=== PATIENT | female | born 1960 | race Caucasian/White ===

== ENCOUNTER 2025-03-25 09:55 | Outpatient (AMB) | payer BC, SELFPAY ==
--- OUTSIDE RECORDS SUMMARY | 2025-03-22 13:00 | XMS_ITS | Encounter Summary ---
Author Organization [facility] Address [address] [place] [address] Care Team Providers Care Content Architect Name Role Phone Denita Perez MD Primary Care Provider [phone] Reason for Visit * Reason Comments Follow-up Encounter Details Date Type Department Care Team ([facility] st Contact Info) Description 03/22/2025 1:00 PM EST Office Visit Adult Medicine [address] [phone] Denita Perez MD [address] [place] [address] Primary hypertension (Primary Dx); Prediabetes; Urinary urgency; Acquired hypothyroidism; Need for prophylactic vaccination and inoculation against influenza; Skin infection Social History Tobacco Use Types Packs/Day Years Used Date Smoking Tobacco: Former Passive Smoke Exposure: Never Smokeless Tobacco: Never Alcohol Use Standard Drinks/Week Comments Yes 0 (1 standard drink = 0.6 oz pur e alcohol) Comments No Sex and Gender Information Value Date Recorded Sex Assigned at Not on file Legal Sex Female 1:08 AM EST Gender Identity Not on file Sexual Orientation Not on file documented as of this encounter Last Filed Vital Signs Vital Sign Reading Time Taken Comments Blood Pressure 128/78 03/22/2025 1:03 PM EST Pulse 82 03/22/2025 1:03 PM EST Temperature 36.4 C (97.5 F) 03/22/2025 1:03 PM EST Respiratory Rate 14 03/22/2025 1:03 PM EST Oxygen Saturation 98% 03/22/2025 1:03 PM EST Inhaled Oxygen Concentration - - Weight 80.3 kg (177 lb) 03/22/2025 1:03 PM EST Height 174 cm (5' 8.5 ) 03/22/2025 1:03 PM EST Body Mass Index 26.52 03/22/2025 1:03 PM EST documented in this encounter Ordered Prescriptions Prescription Sig Dispense Quantity Refills Last Filled Start Date End Date lisinopriL (PRINIVIL,ZESTRIL) 2.5 mg tablet Take 1 tablet (2.5 mg total) by mouth 1 (one) time each day. 90 each 1 03/22/2025 6 doxycycline (VIBRAMYCIN) 100 mg capsule Take 1 capsule (100 mg total) by mouth 2 (two) times a day for 7 days. Take with at least 8 ounces (large glass) of water, do not lie down for 30 minutes after. Administer 2 hours before or after multivitamins, antacids, or other products containing polyvalent cations (i.e., calcium, iron, magnesium, selenium, zinc). 14 each 03/22/2025 5 rOPINIRole (REQUIP) 1 mg tabletIndications: restless leg syndrome Take 1 tablet (1 mg total) by mouth at bedtime. 90 tablet 1 03/22/2025 metoprolol succinate (TOPROL-XL) 50 mg 24 hr tablet Take 1 tablet (50 mg total) by mouth 1 (one) time each day. 90 tablet 1 03/22/2025 gabapentin (NEURONTIN) 300 mg capsule Take 1 capsule (300 mg total) by mouth 2 (two) times a day. 180 capsule 1 03/22/2025 atorvastatin (LIPITOR) 40 mg tablet Take 1 tablet (40 mg total) by mouth at bedtime. 90 tablet 1 03/22/2025 documented in this encounter Progress Notes * Denita Perez MD - 03/22/2025 1:00 PM EST Images from the original note were not included. CHIEF COMPLAINT: Follow-up IDENTIFIER: Shannon Campbell is a 65 y.o. old female. HPI: Patient is a 65-year-old female with history of hypertension, hyperlipidemia, hypothyroidism, restless leg syndrome, anxiety, lumbar spinal stenosis who is here for medication review. Ciqepnxzhusd-igdp-kvuntrnqxu on lisinopril 5 mg, metoprolol 50 mg daily.Patient reports intermittent episodes of lightheadedness which last a few seconds and then resolved, has lost weight over the years with lifestyle modifications. Hypothyroidism-compliant with levothyroxine 100 mcg daily. Hyperlipidemia-patient reports compliance with atorvastatin 40 mg daily. Restless leg syndrome-on ropinirole 1 mg prior to bedtime. Anxiety-symptoms stable on sertraline 100 mg daily. Lumbar spinal stenosis-taking gabapentin 300 mg twice a day History of MRSA-patient had a previous MRSA related boil on the back of her right leg, states that currently she has another 1, did see infectious disease and had blood cultures drawn which were negative. She has undergone decolonization with mupirocin and chlorhexidine wash. Previous history of MRSA UTI, reporting some urinary urgency symptoms as well ROS: Review of systems: Pertinent items are noted in HPI PAST MEDICAL HISTORY: Patient Active Problem List Diagnosis Date Noted Dysplastic nevi 02/20/2024 Prediabetes 10/17/2021 Endometrial polyp 09/13/2021 Postmenopausal bleeding 09/03/2021 Chronic left-sided low back pain 08/20/2021 Cervical spondylosis with radiculopathy 06/26/2021 Hematuria 06/21/2015 Anxiety 03/17/2014 Hypercholesterolemia 11/25/2013 Proteinuria 12/18/2012 Hypothyroidism 11/13/2010 Essential hypertension, benign 07/16/2006 Allergic rhinitis 07/16/2006 Obesity (BMI 30.0-34.9) 07/10/2006 Female infertility 12/13/2005 SOCIAL HISTORY: Social History Tobacco Use Smoking status: Former Passive exposure: Never Smokeless tobacco: Never Substance Use Topics Alcohol use: Yes FAMILY HISTORY: Family Status Relation Name Status Mother Alive HTN; DM Father HODGKINS MGM SD 70s MGF SD 70s, CVA PGM at age 80s Old age PGF at age 60s SD Other m 1st cousin 40s Alive Nephew Hodgkins Other Nephew Alive Neg Hx (Not Specified) Sister Alive 3 sisters healthy Daughter Alive 1 daughter age 19, healthy, Kolleen Son Alive 1 son, fraternal twin, 19 healthy, Sanya Uncle (Not Specified) Mat uncle [place] No partnership data on file Family History[1] ACTIVE MEDICATIONS: Medications Taking[2] ALLERGIES: Chlorzoxazone PHYSICAL EXAM: Blood pressure 128/78, pulse 82, temperature 36.4 ??C (97.5 ??F), temperature source Temporal, resp. rate 14, height 1.74 m (68.5 ), weight 80.3 kg (177 lb), SpO2 98%. Body mass index is 26.52 kg/m??. Plan is deferred until next visit APPEARANCE: Alert and in no acute distress EYES: PERRLA, conjunctiva and sclera normal HEART: RRR with normal S1 and S2, no murmurs, no gallops, no JVD appreciated LUNG: clear to auscultation bilaterally EXTREMITIES: Extremities warm and well perfused without clubbing, cyanosis, or edema NEURO: Awake, alert and oriented x 3 and Normal gait SKIN: Erythematous nodule on right posterior thigh LABS: IMPRESSION: 1. Primary hypertension 2. Prediabetes 3. Urinary urgency 4. Acquired hypothyroidism 5. Need for prophylactic vaccination and inoculation against influenza 6. Skin infection ASSESSMENT/PLAN: Shannon was seen today for follow-up. Diagnoses and all orders for this visit: Primary hypertension (Primary) - Comprehensive metabolic panel; Future Prediabetes - CBC and differential; Future - Hemoglobin A1c; Future Urinary urgency - Urinalysis with reflex microscopic and culture; Future Acquired hypothyroidism - Thyroid stimulating hormone with reflex to free t4 and free t3; Future Need for prophylactic vaccination and inoculation against influenza - Influenza trivalent, MDCK, 0.5mL, preservative free (Flucelvax) 6mo and older Skin infection Other orders - atorvastatin (LIPITOR) 40 mg tablet; Take 1 tablet (40 mg total) by mouth at bedtime. - gabapentin (NEURONTIN) 300 mg capsule; Take 1 capsule (300 mg total) by mouth 2 (two) times a day. - metoprolol succinate (TOPROL-XL) 50 mg 24 hr tablet; Take 1 tablet (50 mg total) by mouth 1 (one)time each day. - rOPINIRole (REQUIP) 1 mg tablet; Take 1 tablet (1 mg total) by mouth at bedtime. - doxycycline (VIBRAMYCIN) 100 mg capsule; Take 1 capsule (100 mg total) by mouth 2 (two) times a day for 7 days. Take with at least 8 ounces (large glass) of water, do not lie down for 30 minutes after. Administer 2 hours before or after multivitamins, antacids, or other products containing polyvalent cations (i.e., calcium, iron, magnesium, selenium, zinc). - lisinopriL (PRINIVIL,ZESTRIL) 2.5 mg tablet; Take 1 tablet (2.5 mg total) by mouth 1 (one) time each day. Plan Patient with history of hypertension, currently on lisinopril 5 mg, does report intermittent episodes of lightheadedness which last about a few seconds, has lost weight over the years with healthier lifestyle, decreased dose of lisinopril 2.5 mg daily, and continue with metoprolol 50 mg daily, patient vitamin D and blood pressure log at home and follow-up in office for recheck.History of MRSA-patient had a previous MRSA related boil on the back of her right leg, states that currently she has another 1, did see infectious disease and had blood cultures drawn which were negative. She has undergone decolonization with mupirocin and chlorhexidine wash. Previous history of MRSA UTI, reporting some urinary urgency symptoms as well, start doxycycline for treatment of MRSA related skin and soft tissue infection, obtain urinalysis with reflex to culture. Patient advised to monitor symptoms and contact office if there is any worsening of symptoms. Continue with atorvastatin, lipid panel well-controlled. Continue with gabapentin. Continue levothyroxine, repeat TSH. Continue with ropinirole. Continue with sertraline. Follow up in about 8 weeks (around 05/17/2025) for BP follow up. Orders Placed This Encounter Procedures Influenza trivalent, MDCK, 0.5mL, preservative free (Flucelvax) 6mo and older CBC and differential Comprehensive metabolic panel Thyroid stimulating hormone with reflex to free t4 and free t3 Hemoglobin A1c Urinalysis with reflex microscopic and culture Recent Results (from the past 4 weeks) Lipid panel with reflex to direct LDL Collection Time: 03/18/25 8:34 AM Result Value Ref Range Cholesterol 162 0 - 200 mg/dL Triglycerides 93 0 - 150 mg/dL HDL 45 >=40 mg/dL LDL Calculated 98 0 - 100 mg/dL VLDL Cholesterol Craig 18.6 mg/dL Non HDL Chol. (LDL+VLDL) 117 <145 mg/dL Chol/HDL Ratio 3.6 0.0 - 4.4 Denita Perez MD on 03/22/2025 at 1:32 PM EST [1] Family History Problem Relation Name Age of Onset Colon polyps Mother Hypertension Mother 40's start Other cancer Father Hodgkins Heart failure Maternal Grandmother Hypertension Maternal Grandmother Heart attack Maternal Grandmother 74 Stroke Maternal Grandmother 70's Heart failure Maternal Grandfather Hypertension Maternal Grandfather Heart attack Maternal Grandfather 75 Diabetes Paternal Grandmother Heart attack Paternal Grandfather 60's Breast cancer Other m 1st cousin 40s 48.00 1st cousin Other (Other: hodjkins lymphoma) Other Nephew Colon cancer Neg Hx Ovarian cancer Neg Hx Uterine cancer Neg Hx [2] Outpatient Medications Marked as Taking for the 03/22/25 encounter (Office Visit) with Denita Perez MD Medication Sig Dispense Refill atorvastatin (LIPITOR) 40 mg tablet Take 1 tablet (40 mg total) by mouth at bedtime. 90 tablet 1 gabapentin (NEURONTIN) 300 mg capsule Take 1 capsule (300 mg total) by mouth 2 (two) times a day. 180 capsule 1 metoprolol succinate (TOPROL-XL) 50 mg 24 hr tablet Take 1 tablet (50 mg total) by mouth 1 (one) time each day. 90 tablet 1 rOPINIRole (REQUIP) 1 mg tablet Take 1 tablet (1 mg total) by mouth at bedtime. 90 tablet 1 [DISCONTINUED] metoprolol succinate (TOPROL-XL) 50 mg 24 hr tablet TAKE 1 TABLET BY MOUTH EVERY DAY90 tablet 1 documented in this encounter Plan of Treatment Upcoming Encounters Date Type Department Care Team (Late st Contact Info) Description 05/19/2025 11:00 AM EST Office Visit Adult Medicine [address] [phone] César Lamb PA [address] [place] [id number] Scheduled Orders Name Type Priority Associated Diagnoses Orde r Schedule CBC and differential Lab Routine Prediabetes Expected: 03/22/2025, Expires: 09/19/2025 Comprehensive metabolic panel Lab Routine Primary hypertension Expected: 03/22/2025, Expires: 09/19/2025 Thyroid stimulating hormone with reflex to free t4 and free t3 Lab Routine Acquired hypothyroidism Expected: 03/22/2025, Expires: 09/19/2025 Hemoglobin A1c Lab Routine Prediabetes Expected: 03/22/2025, Expires: 09/19/2025 documented as of this encounter Visit Diagnoses Diagnosis Primary hypertension- Primary Unspecified essential hypertension Prediabetes Other abnormal glucose Urinary urgency Urgency of urination Acquired hypothyroidism Unspecified hypothyroidism Need for prophylactic vaccination and inoculation against influenza Skin infection Unspecified local infection of skin and subcutaneous tissue documented in this encounter Discontinued Medications Medication Sig Discontinue Reason Start Date End Da te gabapentin (NEURONTIN) 300 mg capsule Take 1 capsule (300 mg total) by mouth 2 (two) times a day. Reorder 05/17/2024 03/22/2025 rOPINIRole (REQUIP) 1 mg tabletIndications:re stless leg syndrome Take 1 tablet (1 mg total) by mouth at bedtime. Reorder 09/14/2024 03/22/2025 atorvastatin (LIPITOR) 40 mg tablet Take 1 tablet (40 mg total) by mouth at bedtime. Reorder 01/07/2025 03/22/2025 metoprolol succinate (TOPROL-XL) 50 mg 24 hr tablet TAKE 1 TABLET BY MOUTH EVERY DAY Reorder 01/13/2025 03/22/2025 fluconazole (DIFLUCAN) 150 mg tablet Take 1 tablet (150 mg total) by mouth See administration instructions. Take one tab now. Repeat in 7 days if symptoms persist. Therapy completed 12/06/2024 03/22/2025 lisinopriL (PRINIVIL,ZESTRIL) 5 mg tablet TAKE 1 TABLET BY MOUTH 1 TIME EACH DAY. 11/09/2024 03/22/2025 documented as of this encounter Orders Immunization/Injection Count Last Ordered Date First Ordered Date INFLUENZA TRIVALENT, MDCK, 0 .5ML, PRESERVATIVE FREE (FLUCELVAX) 6MO AND OLDER 1 03/22/2025 documented in this encounter Additional Health Concerns Infection Onset Date Last Indicated Resolved Time MRSA 12/01/2024 12/01/2024 documented as of this encounter Care Teams Content Architect Relationship Specialty Start Date End Date Denita Perez MD [address] [place] [phone] PCP - General Internal Medicine 07/08/22 documented as of this encounter
--- OUTSIDE RECORDS SUMMARY | 2025-03-22 13:40 | XMS_ITS | Encounter Summary ---
Author Organization [facility] Address [address] [place] [address] Care Team Providers Care Auto Transmission Mechanic Name Role Phone Denita Perez MD Primary Care Provider [phone] Encounter Details Date Type Department Care Team (Late Contact Info) Description 03/22/2025 1:40 PM EST Lab Draw [address] Urinary urgency Social History Tobacco Use Types Packs/Day Years [...] on file documented as of this encounter Plan of Treatment Upcoming Encounters Date Type Department Care Team (Late Contact Info) Description 05/19/2025 11:00 AM EST Office Visit Adult Medicine [address] [phone] César Lamb PA [address] [place] [phone] documented as of this encounter Procedures Procedure Name Priority Date/Time Associated Diagnosis Comments URINALYSIS WITH REFLEX MICROSCOPIC AND CULTURE Routine 03/22/2025 1:40 PM EST Urinary urgency LAMBERT URINE CULTURE TUBE Routine 03/22/2025 1:40 PM EST Urinary urgency URINALYSIS WITH REFLEX MICROSCOPIC AND CULTURE Routine 03/22/2025 1:40 PM EST Urinary urgency CULTURE URINE Routine 03/22/2025 1:40 PM EST Urinary urgency documented in this encounter Results * Culture urine (03/22/2025 1:40 PM EST) Pathologist [facility] Culture, Urine 10,000-49,000 CFU/mL Mixed urogenital jigar, no uropathogens present. Suggest repeat specimen if clinically indicated. 03/24/2025 11:22 AM EST [facility] Urine Urine specimen obtained by clean catch procedure / Unknown Non-blood Collection / Unknown 03/22/2025 1:40 PM EST 03/22/2025 8:31 PM EST us Denita Perez MD LAB MICROBIOLOGY - GENERAL ORDER DANIEL Final Result Performing Organization Address City/[facility]/ZIP Co de Phone Number [facility] [address] [place] [address], [place] [phone] * Lambert urine culture tube (03/22/2025 1:40 PM EST) [facility] Extra Tube Hold for add-ons. 03/22/2025 7:01 PM EST [facility] Comment:Auto resulted. Urine Urine specimen obtained by clean catch procedure / Unknown Non-blood Collection / Unknown 03/22/2025 1:40 PM EST 03/22/2025 1:40 PM EST us Denita Perez MD LAB URINE ORDERABLES Final Resul t Performing Organization Address City/[facility]/ZIP Co de Phone Number [facility] [address] [place] [address], [place] [phone] * (ABNORMAL) Urinalysis with reflex microscopic and culture (03/22/2025 1:40 PM EST) Specific [place] Urine 1.020 1.003 - 1.030 LAB URINALYSIS - AUTOMATED METHOD 03/22/2025 8:31 PM [facility] pH, Urine 6.0 5.0 - 8.0 pH LAB URINALYSIS - AUTOMATED METHOD 03/22/2025 8:31 PM [facility] Leukocytes, Urine Trace(A) Negative LAB URINALYSIS - AUTOMATED METHOD 03/22/2025 8:31 PM [facility] Nitrite, Urine Negative Negative LAB URINALYSIS - AUTOMATED METHOD 03/22/2025 8:31 PM [facility] Protein, Urine Negative <=Trace mg/dL LAB URINALYSIS - AUTOMATED METHOD 03/22/2025 8:31 PM [facility] Glucose, Urine Negative Negative mg/dL LAB URINALYSIS - AUTOMATED METHOD 03/22/2025 8:31 PM [facility] Ketones, Urine Negative Negative mg/dL LAB URINALYSIS - AUTOMATED METHOD 03/22/2025 8:31 PM [facility] Urobilinogen, Urine 1.0 0.2 - 1.0 mg/dL LAB URINALYSIS - AUTOMATED METHOD 03/22/2025 8:31 PM [facility] Bilirubin, Urine Negative Negative LAB URINALYSIS - AUTOMATED METHOD 03/22/2025 8:31 PM [facility] Blood, Urine Trace(A) Negative LAB URINALYSIS - AUTOMATED METHOD 03/22/2025 8:31 PM [facility] RBC, Urine 1 0 - 4 /HPF 03/22/2025 8:31 PM [facility] WBC, Urine 2 0 - 4 /HPF 03/22/2025 8:31 PM [facility] Squamous Epithelial, Urine 10 0 - 60 /LPF 03/22/2025 8:31 PM [facility] Bacteria, Urine Negative Negative /HPF 03/22/2025 8:31 PM EST [facility] Hyaline Casts, Urine 0 0 - 3 /LPF 03/22/2025 8:31 PM EST [facility] Urine Urine specimen obtained by clean catch procedure / Unknown Non-blood Collection / Unknown 03/22/2025 1:40 PM EST 03/22/2025 1:40 PM EST us Denita Perez MD LAB URINE ORDERABLES Final Resul t [facility] [address] [place] [address], documented in this encounter Visit Diagnoses Diagnosis Urinary urgency Urgency of urination documented in this encounter Additional Health Concerns Infection Onset Date Last Indicated Resolved Time MRSA 12/01/2024 12/01/2024 documented as of this encounter Care Teams Auto Transmission Mechanic Relationship Specialty Start Date End Date Denita Perez MD [address] [place] [phone] PCP - General Internal Medicine 07/08/22 documented as of this encounter
--- NOTE | 2025-03-25 10:01 | A.PHYSOV_ITS ---
Vital Signs 03/25/25 10:02 Height 5 ft 9 in Weight 175 lb BMI 25.8 Intake Visit Reasons: Increased back pain Intake Note: Patient is a 65 year old female here with increased back pain. Refrigeration Brazer/Solderer Required: No Allergies chlorzoxazone Allergy (Unknown, Verified 03/25/25 10:01) Unknown HPI Comments Details: History of Present Illness The patient is a 65-year-old individual presenting with recurrent lower back pain radiating to the left leg. The pain episodes occur approximately every two months and last for at least two weeks. The pain is described as shooting and is associated with numbness in the left leg, which feels as though it is asleep. The patient reports that the pain was particularly severe in January, with the back feeling as though it was on fire when standing. The patient has been managing the pain with ibuprofen, Tylenol, and Gabapentin, and has previously been prescribed Prednisone. An MRI from 2022 revealed pinched nerves at the left L4 and bilateral L5 nerve roots, which innervate the left leg. The patient is considering an epidural injection to manage the pain, which is expected to provide relief for three to six months. Pain Description - Onset: Pain occurs approximately every two months, lasting at least two weeks. - Quality: Described as shooting pain in the lower back. - Location: Primarily in the lower back, radiating to the left leg. - Radiation: Pain radiates to the left leg, causing numbness. - Exacerbating factors: Standing up increases the pain, described as the back being on fire. - Relieving factors: Use of ibuprofen, Tylenol, Gabapentin, and previously Prednisone. [facility] Surgical History History of neck surgery Social History Alcohol intake: current Alcohol intake frequency: does not drink Patient Tobacco Use Status: Former Tobacco user Use of substances other than those prescribed or required for medical reasons: No Review of Systems Narrative Review of Systems - Musculoskeletal: Reports recurrent lower back pain radiating to the left leg. - Neurological: Reports numbness in the left leg. Physical Exam Exam Exam: Lumbar Spine: Examination of her lumbar spine, there is no visible swelling or deformity. She is tender to lower lumbar facets. She has full range of motion of the lumbar spine. She does have an increase in pain with facet loading. Special Tests: Lhermittes sign was negative Heel Toe walk is normal Left straight leg raise: Negative Right straight leg raise: Negative Special tests Paulina test is negative Ganslen's test is negative SI Joint compression test negative Vasquez test negative Piriformis stretch is negative Lower Extremities: Full range of motion bilateral lower extremities. No calf pain or edema. Neuro: Sensation: Intact to lower extremities bilaterally Strength L2 (Psoas): 5/5 on the left and 5/5 on the right. L3 (Quads): 5/5 on the left and 5/5 on the right. L4 (Ant tibialis): 5/5 on the left and 5/5 on the right. L5 (EHL) 5/5 on the left and 5/5 on the right. S1 (Gastroc): 5/5 on the left and 5/5 on the right. DTR L4: (Patellar) Left 2 Right 2 S1: (Achilles) Left 2 Right 2 Babinski Downgoing No pathologic clonus. No involuntary movement. Vital Signs: BMI result Body Mass Index 25.8 Assessment & Plan Assessment & Plan (1) Lumbar radiculopathy: Code(s): M54.16 - Radiculopathy, lumbar region Category: Medical (2) Lumbar spondylosis: Code(s): M47.816 - Spondylosis without myelopathy or radiculopathy, lumbar region Category: Medical Plan Ms. Campbell is a 65-year-old female seen in evaluation today for lumbar radiculitis. Patient has failed conservative treatment by completing physical therapy. She has also been using anti-inflammatory medications without relief. She finds that her symptoms limit her ability to perform her activities of daily living. MRI of the lumbar spine does confirm compression of the left L5, left L4 nerve roots which is consistent with a dermatomal presentation. At this point I recommend L5-S1 LUCHO and she is eager to proceed. We will obtain prior authorization for her injection and contact her once we have done so. In the meantime she will continue her home exercise plan and medications as prescribed. Thank you for allowing me to participate in the care of your patient. Coding Level of Care Code Tele Est Pt Level 3 (64923) Diagnoses Lumbar radiculopathy M54.16 Lumbar spondylosis M47.816
[2025-03-25 10:02] VITALS: BMI 25.8
--- OUTSIDE RECORDS SUMMARY | 2025-03-25 10:37 | XMS_ITS | Clinical Summary ---
Author Organization [facility] [address] [place] [address] [place] [phone] Phone Care Team Providers Care [employer] Processor Name Role Phone Denita Perez MD Primary Care Provider [phone] Allergies Active Allergy Reactions Criticality Noted Date Comments Chlorzoxazone 07/17/2006 Other Reaction(s): Rash/Dermatitis Medications sertraline (ZOLOFT) 100 mg tablet TAKE 1 TABLET BY MOUTH EVERYDAY AT BEDTIME 90 tablet 1 025 Active levothyroxine (SYNTHROID, LEVOTHROID) 100 mcg tablet TAKE 1 TABLET (100 MCG TOTAL) BY MOUTH 1 (ONE) TIME EACH DAY. BEFORE BREAKFAST 90 tablet 1 025 Active atorvastatin (LIPITOR) 40 mg tablet Take 1 tablet (40 mg total) by mouth at bedtime. 90 tablet 1 025 Active gabapentin (NEURONTIN) 300 mg capsule Take 1 capsule (300 mg total) by mouth 2 (two) times a day. 180 capsule 1 025 Active metoprolol succinate (TOPROL-XL) 50 mg 24 hr tablet Take 1 tablet (50 mg total) by mouth 1 (one) time each day. 90 tablet 1 025 Active rOPINIRole (REQUIP) 1 mg tabletIndicat ions:restless leg syndrome Take 1 tablet (1 mg total) by mouth at bedtime. 90 tablet 1 025 Active doxycycline (VIBRAMYCIN) 100 mg capsule Take 1 capsule (100 mg total) by mouth 2 (two) times a day for 7 days. Take with at least 8 ounces (large glass) of water, do not lie down for 30 minutes after. Administer 2 hours before or after multivitamins, antacids, or other products containing polyvalent cations (i.e., calcium, iron, magnesium, selenium, zinc). 14 each 025 2024 Active lisinopriL (PRINIVIL,ZES TRIL) 2.5 mg tablet Take 1 tablet (2.5 mg total) by mouth 1 (one) time each day. 90 each 1 2025 Active gabapentin (NEURONTIN) 300 mg capsule Take 1 capsule (300 mg total) by mouth 2 (two) times a day. 360 capsule 1 2024 Discontinued(R eorder) rOPINIRole (REQUIP) 1 mg tabletIndicat ions:restless leg syndrome Take 1 tablet (1 mg total) by mouth at bedtime. 90 tablet 1 2024 Discontinued(R eorder) lisinopriL (PRINIVIL,ZES TRIL) 5 mg tablet TAKE 1 TABLET BY MOUTH 1 TIME EACH DAY. 90 tablet 1 2024 Discontinued fluconazole (DIFLUCAN) 150 mg tablet Take 1 tablet (150 mg total) by mouth See administration instructions. Take one tab now. Repeat in 7 days if symptoms persist. 2 tablet 2024 Discontinued(T herapy completed) atorvastatin (LIPITOR) 40 mg tablet Take 1 tablet (40 mg total) by mouth at bedtime. 90 tablet 2024 Discontinued(R eorder) metoprolol succinate (TOPROL-XL) 50 mg 24 hr tablet TAKE 1 TABLET BY MOUTH EVERY DAY 90 tablet 1 2024 Discontinued(R eorder) Active Problems Problem Noted Date Diagnosed Date Dysplastic nevi 02/20/2024 Overview (02/20/2024): 1997 Prediabetes 10/17/2021 Endometrial polyp 09/13/2021 Postmenopausal bleeding 09/03/2021 Overview (02/20/2024): Last Assessment & Plan: I counseled Ishmael that PMB is relatively common and most often represents a benign process, but that it can be indicative of cancer, and thus is evaluated with an US. If the lining is thin, no further work up is necessary unless bleeding recurs. If the lining is thickened, can consider office biopsy vs hysteroscopy. She voiced understanding and will schedule her US. We will plan next steps once US results are available. Chronic left-sided low back pain 08/20/2021 Overview (02/20/2024): Last Assessment & Plan: We also discussed her ongoing low back pain particular on the left. We referred her to Dr. Hsieh in the past and she saw several months of improvement after a left L5-S1 LUCHO. She is now back to the same daily achiness with activity. She has no focal weakness and gait is steady. I will refer her back to Dr. Hsieh to consider repeat injection. Cervical spondylosis with radiculopathy 06/26/19 Overview (02/20/2024): Last Assessment & Plan: Ms. Herzog is status post C5-6, C6-7 ACDF with plating on 06/16/2018. She did very well after surgery but has had a recent flareup of trapezius pain particular on the right and feeling limited when turning to the left especially while driving. We referred her to physical therapy which she does not feel helped and even on some days, she felt worse. This is not debilitating and she denies issues with dexterity or every day activity in terms of using her hands. On exam, her incision is well-healed, cervical rotation is nearly 75 degrees to the right and between 60 and 75 degrees to the left. Strength is 5 out of 5 to confrontational testing, sensation light touch intact, gait is steady. Review of the AP/lateral flexion/extension x-rays from today show a solid arthrodesis across both grafts with an intact plate and screws from C5-C7. There is no instability at the levels above. Ms. Herzog was concerned that there may be additional wear and tear at her adjacent levels but I think it looks great. We discussed continuing with gentle stretches at home and keeping up with her daily activities. We would not pursue any further surgery as everything looks great. Hematuria 06/21/2015 Anxiety 03/17/2014 Hypercholesterolemia 11/25/2013 Proteinuria 12/18/2012 Hypothyroidism 11/13/2010 Essential hypertension, benign 07/16/2006 Overview (02/20/2024): Last Assessment & Plan: Referred to PCP for improved control. 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 IMO update Encounters Date Type Department Care Team Description 03/24/2025 Results Follow-Up Adult Medicine [address] [phone] Denita Perez MD 03/22/2025 1:40 PM EST Lab Draw Station [address] Urinary urgency 03/22/2025 1:00 PM EST Office Visit Adult Medicine [address] [phone] Denita Perez MD Primary hypertension (Primary Dx); Prediabetes; Urinary urgency; Acquired hypothyroidism; Need for prophylactic vaccination and inoculation against influenza; Skin infection 03/21/2025 Results Follow-Up Adult [address] [phone] Denita Perez MD 03/18/2025 8:35 AM EST Lab Draw Station - [address] Hypercholesterolemia from Last 3 Months Immunizations Immunization Administration Dates Next Due Influenza Quadravalent, MDCK , 0.5ml, preservative free (Flucelvax) 6mo and older 02/18/2024,03/15/2020,01/12/2018 Influenza Quadravalent, MDCK , 0.5ml, with preservative (Flucelvax) 6mo and older 01/31/2023 Influenza Quadrivalent, 0.5m l, preservative free (Fluarix; FluLaval; Fluzone) ages 6mo and older (Afluria) 3yo and older 03/09/2016 Influenza Split 02/08/2013,01/30/2012,01/24/2009 Influenza trivalent, 0.5mL, preservative free (Fluarix; FluLaval; Fluzone) ages 6mo and older (Afluria) 3 years and older 03/09/2016 Influenza trivalent, MDCK, 0 .5mL, preservative free (Flucelvax) 6mo and older 03/22/2025 Influenza trivalent, MDCK, 0 .5mL, with preservative (Flucelvax) 6mo and older 02/18/2024 Influenza trivalent, recombi nant, 0.5mL, preservative free (Flublok) 9yo and older 02/17/2014 Influenza trivalent, with preservative (Fluzone; Afluria) 6mo and older 04/03/2022,02/26/2021,02/15/2021,2018,02/13/2017,02/08/2013,01/30/2012 Influenza, Unspecified 04/03/2022,02/17/2014 PPD Test 01/21/2001,01/19/2001 Td Tetanus diptheria (Tdvax) 7yo and older 05/10/2022,09/01/2004 Tdap Tetanus diptheria acell ular pertussis (Boostrix; Adacel) 7yo and older 02/26/2012 Surgical History Surgery Date Site/Laterality Comments OTHER SURGICAL HISTORY PROCEDURE: LAPAROSCOPY PROCEDURE NEC; COMMENT: IVF OTHER SURGICAL HISTORY PROCEDURE: LAPAROSCOPY PROCEDURE NEC; COMMENT: Endometriosis COLONOSCOPY 2012 PROCEDURE: LA COLONOSCOPY FLX DX W/COLLJ SPEC WHEN PFRMD; COMMENT: Normal. OTHER SURGICAL HISTORY PROCEDURE: TOOTH ROOT REMOVAL OTHER SURGICAL HISTORY PROCEDURE: LA DILATION CERVICAL CANAL INSTRUMENTAL SPX; COMMENT: Infertility management SALPINGOOPHORECTOMY Left PROCEDURE: LA LAPAROSCOPY W/RMVL ADNEXAL STRUCTURES; COMMENT: dermoid cyst -2007 Medical History Medical History Date Comments Female infertility of unspecified origin DX:Female infertility of unspecified origin; COMMENT: in vitro- twins Allergic rhinitis, cause unspecified DX:Allergic rhinitis, cause unspecified Other and unspecified ovarian cyst DX:Other and unspecified ovarian cyst Overweight(278.02) 07/10/2006 DX:Overweight (278.02) HTN (hypertension) DX:HTN (hyper tension) Hypercholesterolemia DX:Hypercho lesterolemia Dysplastic nevi DX:Dysplastic ne vi; COMMENT: 1996 Endometriosis DX:Endometriosis Hematuria 06/21/2015 DX:Hematuria Hypothyroid DX:Hypothyroid Anxiety DX:Anxiety Family History Medical History Relation Name Comments Other cancer Father Hodgkins Heart attack Maternal Grandfather 75 Heart failure Maternal Grandfather Hypertension Maternal Grandfather Heart attack Maternal Grandmother 74 Heart failure Maternal Grandmother Hypertension Maternal Grandmother Stroke Maternal Grandmother 70's Colon polyps Mother Hypertension Mother 40's start Breast cancer Other 1 m 1st cousin 40s 1st cousin Other: hodjkins lymphoma Other 2 Nephew Heart attack Paternal Grandfather 60's Diabetes Paternal Grandmother Colon cancer Neg Hx Ovarian cancer Neg Hx Uterine cancer Neg Hx Relation Name Status Comments Daughter Alive 1 daughter age 19, healthy, Kolleen Father HODGKINS Maternal Grandfather [place] 70s, CVA Maternal Grandmother [place] 70s Mother Alive HTN; DM Other 1 m 1st cousin 40s Alive Nephew Hodg kins Other 2 Nephew Alive Paternal Grandfather (Age 60s) M I Paternal Grandmother (Age 80s) O ld age Sister Alive 3 sisters healt hy Son Alive 1 son, fraterna l twin, 19 healthy, Sanya Uncle Mat uncle [place] Social History Tobacco Use Types Packs/Day Years Used Date Smoking Tobacco: Former Passive Smoke Exposure: Never Smokeless Tobacco: Never Tobacco Cessation:Counseling Given: Not Answered Alcohol Use Standard Drinks/Week Comments Yes 0 (1 standard drink = 0.6 oz pur e alcohol) Comments No Sex and Gender Information Value Date Recorded Sex Assigned at Not on file Legal Sex Female 1:08 AM EST Gender Identity Not on file Sexual Orientation Not on file Obstetrics History Para Term AB IAB SAB Ectopic Multiple Livin g Live Births 2 2 2 2 Date Outcome GA Total Labor Labor/2nd/3rd Weight Sex Type Anes PTL Bia A1 A5 Name Clin Term Term Last Filed Vital Signs Vital Sign Reading [...] Mass Index 26.52 03/22/2025 1:03 PM EST Plan of Treatment Upcoming Encounters Date Type Department Care Team (Late st Contact Info) Description 05/19/2025 11:00 AM EST Office Visit Adult Medicine [address] [phone] César Lamb PA [address] [place] [address] Health Maintenance Due Date Last Done Comments Colorectal Cancer Screening: Colonoscopy 1962 Zoster Vaccines (1 of 2) 1981 Pneumococcal Vaccine: 50+ Years (1 of 1 - PCV) 2012 HIV Screening 04/13/2022 Social Influencers of Health Screening 04/13/2022 Depression Screening 05/05/2024 COVID-19 Vaccine ( season) 2025 04/06/2021, 08/09/2020, 07/19/2020 Hypertension/CHF/CAD Annual BMP Blood Test 04/05/2025 04/05/2024, 07/14/2023 Breast Cancer Screening 04/14/2026 04/14/20, 04/08/2023, 04/02/2022, Additional history exists Cervical Cancer Screening: HPV 04/17/2026 04/17/2021 Cholesterol Screening (Lipid Panel) 03/18/2030 03/18/2025, 04/05/2024, 01/10/2023 DTaP,Tdap,and Td Vaccines (4 - Td or Tdap) 05/10/2032 05/10/2022, 02/26/2012, 09/01/2004 RSV Immunization Adult Patients (1 - 1-dose 75+ series) 2037 Hepatitis C Screening Completed 12/18/2012 Influenza Vaccine Completed 03/22/2025, , 02/18/2024, Additional history exists HIB Vaccines Aged Out No longer eligi ble based on patient's age to complete this topic HPV Vaccines Aged Out No longer eligi ble based on patient's age to complete this topic Hepatitis A Vaccines Aged Out No long er eligible based on patient's age to complete this topic Hepatitis B Vaccines Aged Out No long er eligible based on patient's age to complete this topic IPV Vaccines Aged Out No longer eligi ble based on patient's age to complete this topic MMR Vaccines Aged Out No longer eligi ble based on patient's age to complete this topic Meningococcal ACWY Vaccine Aged Out N o longer eligible based on patient's age to complete this topic Meningococcal B Vaccine Aged Out No l onger eligible based on patient's age to complete this topic RSV Immunization Patients Under 20 months Aged Out No longer eligible based on patient's age to complete this topic Varicella Vaccines Aged Out No longer eligible based on patient's age to complete this topic Procedures Procedure Name Priority Date/Time Associated Diagnosis Comments LAMBERT URINE CULTURE TUBE Routine 03/22/2025 1:40 PM EST Urinary urgency URINALYSIS WITH REFLEX MICROSCOPIC AND CULTURE Routine 03/22/2025 1:40 PM EST Urinary urgency URINALYSIS WITH REFLEX MICROSCOPIC AND CULTURE Routine 03/22/2025 1:40 PM EST Urinary urgency CULTURE URINE Routine 03/22/2025 1:40 PM EST Urinary urgency LIPID PANEL WITH REFLEX TO DIRECT LDL Routine 03/18/2025 8:34 AM EST Hypercholesterolemi a MG MAMMO DIGITAL SCREENING W HUNTER BILAT Routine 04/14/2024 1:37 PM EST Encounter for screening mammogram for breast cancer COMPREHENSIVE METABOLIC PANEL Routine 04/05/2024 9:16 AM EST Prediabetes Hypothyroidism Hypercholesterolemi a Proteinuria Hematuria, unspecified type Essential hypertension, benign HM HPV Routine 04/17/2021 HEPATITIS C SCREENING Routine 12/18/2012 from Last 3 Months or Most Recently Relevant to Health Maintenance Results * (ABNORMAL) Urinalysis with reflex microscopic and culture (03/22/2025 1:40 PM EST) Specific [place] Urine 1.020 1.003 - 1.030 LAB URINALYSIS - AUTOMATED METHOD 03/22/2025 8:31 PM [facility] pH, Urine 6.0 5.0 - 8.0 pH LAB URINALYSIS - AUTOMATED METHOD 03/22/2025 8:31 PM [facility] Leukocytes, Urine Trace(A) Negative LAB URINALYSIS - AUTOMATED METHOD 03/22/2025 8:31 PM [facility] Nitrite, Urine Negative Negative LAB URINALYSIS - AUTOMATED METHOD 03/22/2025 8:31 PM [facility] Protein, Urine Negative <=Trace mg/dL LAB URINALYSIS - AUTOMATED METHOD 03/22/2025 8:31 PM [facility] Glucose, Urine Negative Negative mg/dL LAB URINALYSIS - AUTOMATED METHOD 03/22/2025 8:31 PM [facility] Ketones, Urine Negative Negative mg/dL LAB URINALYSIS - AUTOMATED METHOD 03/22/2025 8:31 PM [facility] Urobilinogen, Urine 1.0 0.2 - 1.0 mg/dL LAB URINALYSIS - AUTOMATED METHOD 03/22/2025 8:31 PM [facility] Bilirubin, Urine Negative Negative LAB URINALYSIS - AUTOMATED METHOD 03/22/2025 8:31 PM [facility] Blood, Urine Trace(A) Negative LAB URINALYSIS - AUTOMATED METHOD 03/22/2025 8:31 PM [facility] RBC, Urine 1 0 - 4 /HPF 03/22/2025 8:31 PM [facility] WBC, Urine 2 0 - 4 /HPF 03/22/2025 8:31 PM EST [facility] Squamous Epithelial, Urine 10 0 - 60 /LPF 03/22/2025 8:31 PM [facility] Bacteria, Urine Negative Negative /HPF 03/22/2025 8:31 PM [facility] Hyaline Casts, Urine 0 0 - 3 /LPF 03/22/2025 8:31 PM [facility] Urine Urine specimen obtained by clean catch procedure / Unknown Non-blood Collection / Unknown 03/22/2025 1:40 PM EST 03/22/2025 1:40 PM EST us Denita Perez MD LAB URINE ORDERABLES Final Resul t Performing Organization Address [facility]/ZIP Co de Phone Number [facility] [address] [place] [address], [place] [phone] * Lambert urine culture tube (03/22/2025 1:40 PM EST) Extra Tube Hold for add-ons. 03/22/2025 7:01 PM EST [facility] Comment:Auto resulted. Urine Urine specimen obtained by clean catch procedure / Unknown Non-blood Collection / Unknown 03/22/2025 1:40 PM EST 03/22/2025 1:40 PM EST us Denita Perez MD LAB URINE ORDERABLES Final Resul t [facility] [address] [place] [address], [place] [phone] * Culture urine (03/22/2025 1:40 PM EST) Culture, Urine 10,000-49,000 CFU/mL Mixed urogenital jigar, no uropathogens present. Suggest repeat specimen if clinically indicated. 03/24/2025 11:22 AM [facility] Urine Urine specimen obtained by clean catch procedure / Unknown Non-blood Collection / Unknown 03/22/2025 1:40 PM EST 03/22/2025 8:31 PM EST us Denita Perez MD LAB MICROBIOLOGY - GENERAL ORDER DANIEL Final Result Performing Organization Address City/[facility]/ZIP Co de Phone Number [facility] [address] [place] [address], [place] [phone] * Lipid panel with reflex to direct LDL (03/18/2025 8:34 AM EST) Cholesterol 162 0 - 200 mg/dL LAB CHEMISTRY METHOD 03/18/2025 11:03 AM [facility] Triglycerides 93 0 - 150 mg/dL LAB CHEMISTRY METHOD 03/18/2025 11:03 AM [facility] HDL 45 >=40 mg/dL LAB CHEMISTRY METHOD 03/18/2025 11:03 AM [facility] LDL Calculated 98 0 - 100 mg/dL LAB CHEMISTRY METHOD 03/18/2025 11:03 AM [facility] Comment:Estimated LDL Calcul ated using equation: Total cholesterol - HDL cholesterol - (Triglycerides/5) VLDL Cholesterol Craig 18.6 mg/dL LAB CHEMISTRY METHOD 03/18/2025 11:03 AM [facility] Non HDL Chol. (LDL+VLDL) 117 <145 mg/dL LAB CHEMISTRY METHOD 03/18/2025 11:03 AM [facility] Chol/HDL Ratio 3.6 0.0 - 4.4 LAB CHEMISTRY METHOD 03/18/2025 11:03 AM [facility] Blood Venous blood specimen / Unknown Venipuncture / Unknown 03/18/2025 8:34 AM EST 03/18/2025 8:34 AM EST us Denita Perez MD LAB BLOOD ORDERABLES Final Resul t [facility] ([facility]) [facility] [address] [place] [address], [place] [phone] * MG Mammo Digital Screening w Hunter bilat (04/14/2024 1:37 PM EST) Anatomical Region Laterality Modality Breast Bilateral Mammography 04/14/2024 4:47 PM EST Impressions 04/14/2024 4:51 PM EST BILATERAL BREASTS: Negative, no evidence of malignancy. Normal interval follow- up is recommended in 12 months. BREAST DENSITY: B - There are scattered areas of fibroglandular density. BI-RADS CATEGORY: 1 - NEGATIVE RECOMMENDATION: Screening bilateral mammogram is recommended in 1 year. Mammo Location: [facility], [address] [place] [address], [id number], . -------- FINAL REPORT -------- Dictated By: Hiren Marcus Dictated Date: 04/14/2024 16:47 ET Assigned Physician: Hiren Marcus Reviewed and Electronically Signed By: Hiren Marcus Signed Date: 04/14/2024 16:51 ET Workstation ID: [id number] Transcribed By: Self Edit Transcribed Date: 04/14/2024 16:47 ET Narrative 04/14/2024 4:51 PM EST STUDY: Bilateral screening mammography with tomosynthesis and CAD TECHNIQUE: Bilateral full-field digital screening mammography is obtained and read in conjunction with computer-aided detection. Tomosynthesis as well as 2-D C view imaging were obtained. COMPARISON: Comparison made to multiple prior, most recent April 08, 2023, and most remote February 21, 2015. BILATERAL BREASTS: No significant masses, suspicious calcifications or other abnormalities are seen. Procedure Note Hiren Marcus MD - 04/14/2024 STUDY: Bilateral screening mammography with tomosynthesis and CAD TECHNIQUE: Bilateral full-field digital screening mammography is obtainedand read in conjunction with computer-aided detection. Tomosynthesis aswell as 2-D C view imaging were obtained. COMPARISON: Comparison made to multiple prior, most recent April, and most remote February 21, 2015. BILATERAL BREASTS: No significant masses, suspicious calcifications orother abnormalities are seen. IMPRESSION: BILATERAL BREASTS: Negative, no evidence of malignancy. Normal intervalfollow-up is recommended in 12 months. BREAST DENSITY: B - There are scattered areas of fibroglandular density. BI-RADS CATEGORY: 1 - NEGATIVE RECOMMENDATION: Screening bilateral mammogram is recommended in 1 year. Mammo Location: [facility], [address] [place] [address], [phone], . -------- FINAL REPORT -------- Dictated By: Hiren Marcus Dictated Date: 04/14/2024 16:47 ET Assigned Physician: Hiren Marcus Reviewed and Electronically Signed By: Hiren Marcus Signed Date: 04/14/2024 16:51 ET Workstation ID: [id number] Transcribed By: Self Edit Transcribed Date: 04/14/2024 16:47 ET us Denita Perez MD IM BI PROCEDURES Final Result * Comprehensive metabolic panel (04/05/2024 9:16 AM EST) Sodium 141 133 - 145 mmol/L LAB CHEMISTRY METHOD 04/05/2024 1:32 PM [facility] Potassium 4.3 3.5 - 5.5 mmol/L LAB CHEMISTRY METHOD 04/05/2024 1:32 PM [facility] Chloride 109 96 - 110 mmol/L LAB CHEMISTRY METHOD 04/05/2024 1:32 PM [facility] CO2 27 21 - 32 mmol/L LAB CHEMISTRY METHOD 04/05/2024 1:32 PM [facility] Anion Gap 5 3 - 11 LAB CHEMISTRY METHOD 04/05/2024 1:32 PM [facility] Glucose 97 70 - 100 mg/dL LAB CHEMISTRY METHOD 04/05/2024 1:32 PM [facility] BUN 18 5 - 25 mg/dL LAB CHEMISTRY METHOD 04/05/2024 1:32 PM [facility] Creatinine 0.65 0.50 - 1.10 mg/dL LAB CHEMISTRY METHOD 04/05/2024 1:32 PM [facility] eGFR 100 >=60 mL/min/1. 73m2 LAB CHEMISTRY METHOD 04/05/2024 1:32 PM [facility] Comment:Calculation based on the Chronic Kidney Disease Epidemiology Collaboration (CKD-EPI) equation refit without adjustment for race. BUN/Creatinine Ratio 27.7 LAB CHEMISTRY METHOD 04/05/2024 1:32 PM [facility] Calcium 9.3 8.5 - 10.5 mg/dL LAB CHEMISTRY METHOD 04/05/2024 1:32 PM [facility] AST (SGOT) 15 10 - 42 unit/L LAB CHEMISTRY METHOD 04/05/2024 1:32 PM [facility] ALT (SGPT) 17 10 - 60 unit/L LAB CHEMISTRY METHOD 04/05/2024 1:32 PM [facility] Alkaline Phosphatase 83 42 - 121 unit/L LAB CHEMISTRY METHOD 04/05/2024 1:32 PM [facility] Total Protein 6.5 6.0 - 8.0 g/dL LAB CHEMISTRY METHOD 04/05/2024 1:32 PM [facility] Albumin 3.9 3.2 - 5.0 g/dL LAB CHEMISTRY METHOD 04/05/2024 1:32 PM [facility] Total Bilirubin 0.5 0.0 - 1.4 mg/dL LAB CHEMISTRY METHOD 04/05/2024 1:32 PM [facility] Blood Venous blood specimen / Unknown Venipuncture / Unknown 04/05/2024 9:16 AM EST 04/05/2024 9:16 AM EST Denita Perez MD LAB BLOOD ORDERABLES Final Resul t [facility] ([facility]) [facility] [address] [place] [address], [place] [phone] * Cervical Cancer Screening: HPV (04/17/2021) Cervical Cancer Screening: HPV Abstracted ,Negative Historical Provider HEALTH MAINTENANCE Final Result * Hepatitis C Screening (12/18/2012) Hepatitis C Screening Abstracted Historical Provider HEALTH MAINTENANCE Final Result from Last 3 Months or Most Recently Relevant to Health Maintenance Additional Health Concerns Infection Onset Date Last Indicated 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
--- OUTSIDE RECORDS SUMMARY | 2025-03-25 10:37 | XMS_ITS | Clinical Summary ---
Author Organization [facility] Address [address] [place] [id number] Phone Care Team Providers Care Forestry Laborer Name Role Phone Denita Perez MD Primary Care Provider Allergies No known active allergies Medications atorvastatin (LIPITOR) 40 MG tablet take 1 tablet by mouth everyday at bedtime 08/02/2023 Active gabapentin (NEURONTIN) 300 MG capsule Take 1 capsule by mouth 2 (two) times a day. 07/15/2023 Active levothyroxine (SYNTHROID, LEVOTHROID) 100 MCG tablet Take 100 mcg by mouth. 08/04/2023 Active lisinopril (PRINIVIL,ZESTR IL) 5 MG tablet Take 1 tablet by mouth every morning. 07/31/2023 Active metoprolol succinate (TOPROL-XL) 50 MG 24 hr tablet Take 1 tablet by mouth every morning. 07/15/2023 Active rOPINIRole (REQUIP) 1 MG tablet take 1 tablet by mouth everyday at bedtime 06/24/2023 Active Active Problems Problem Noted Date Diagnosed Date Changing skin lesion 10/07/2023 Family History Medical History Relation Comments Cancer Father Diabetes Mother Hypertension Mother Relation Status Comments Father Mother Alive Social History Tobacco Use Types Packs/Day Years Used Date Smoking Tobacco: Former Cigarettes Smokeless Tobacco: Never Tobacco Cessation:Counseling Given: Not Answered Alcohol Use Standard Drinks/Week Comments Not Asked 0 (1 standard drink = 0.6 oz pur e alcohol) rare Education Answer Date Recorded Are you interested in more education? Not on thong e 08/15/2023 Are you concerned about learning? Not on file 08/15/2023 No 08/15/2023 No 08/15/2023 Digital Access Answer Date Recorded No 08/15/2023 No 08/15/2023 Reliable internet access at home? Not on file 08/15/2023 Device with a working camera? Not on file Comments Unknown Sex and Gender Information Value Date Recorded Sex Assigned at Not on file Legal Sex Female 1:33 PM EDT Gender Identity Not on file Sexual Orientation Not on file Last Filed Vital Signs Vital Sign Reading Time Taken Comments Blood Pressure 128/74 08/20/2023 11:31 AM EDT Pulse 60 08/20/2023 11:31 AM EDT Temperature - - Respiratory Rate - - Oxygen Saturation - - Inhaled Oxygen Concentration - - Weight 90.7 kg (200 lb) 08/20/2023 11:31 AM EDT Height 172.7 cm (5' 8 ) 08/20/2023 11:31 AM EDT Body Mass Index 30.41 08/20/2023 11:31 AM EDT Plan of Treatment Health Maintenance Due Date Last Done Comments CREATININE LEVEL 1962 LIPID PANEL 1962 POTASSIUM LEVEL 1962 TSH LEVEL 1962 DEPRESSION SCREENING 1974 SMOKING Hx and SMOKELESS TOB ACCO SCREENING 1975 HEPATITIS C SCREENING 1980 HIV ONE-TIME SCREENING (18-6 5 YEARS) 1980 PAP SMEAR 1983 SCREENING FOR DIABETES 1997 MAMMOGRAM 2002 COLOGUARD 2007 COLONOSCOPY 2007 COLORECTAL CANCER SCREENING 2007 FIT TEST 2007 FOBT 2007 SIGMOIDOSCOPY 2007 VIRTUAL COLONOSCOPY 2007 PNEUMOCOCCAL VACCINES (50+ y ears) (1 of 1 - PCV) 2012 ZOSTER VACCINES (1 of 2) 2012 Adult Td,Tdap Booster 02/25/2022 02/26/2012 INFLUENZA VACCINE (#1) 2024 COVID-19 VACCINE ( - 2024-2 6 season) 2025 RSV VACCINE (1 - 1-dose 75+ series) 2037 HEPATITIS A VACCINES Aged Out No long er eligible based on patient's age to complete this topic HIB VACCINES Aged Out No longer eligi ble based on patient's age to complete this topic MENINGOCOCCAL VACCINES (ACWY) Aged Out No longer eligible based on patient's age to complete this topic MENINGOCOCCAL VACCINES (B) Aged Out N o longer eligible based on patient's age to complete this topic Medical Devices Not on file Insurance [employer] [facility] FEDERAL Care Teams Forestry Laborer Relationship Specialty Start Date End Date Denita Perez MD [address] [place] [phone] PCP - General Internal Medicine 08/15/23 Additional Source Comments The information contained in this document represents components of the legal health record. It is not the complete legal health record.[facility]
--- OUTSIDE RECORDS SUMMARY | 2025-03-25 10:37 | XMS_ITS | Encounter Summary ---
Author Organization [facility] Address [address] [place] [address] Care Team Providers Care Learn To Swim Instructor Name Role Phone Denita Perez MD Primary Care Provider [phone] Encounter Details Date Type Department Care Team (Late Contact Info) Description 03/21/2025 Results Follow-Up Adult Medicine [address] [phone] eDnita Perez MD [address] [place] [address] Social History Tobacco Use Types Packs/Day Years [...] 05/19/2025 11:00 AM EST Office Visit Adult [address] [phone] César Lamb PA [address] [place] [address] documented as of this encounter Visit Diagnoses Not on filedocumented in this encounter Additional Health Concerns Infection Onset Date Last Indicated Resolved Time MRSA 12/01/2024 12/01/2024 documented as of this encounter Care Teams Learn To Swim Instructor Relationship Specialty Start Date End Date Denita Perez MD [address] [place] [phone] PCP - General Internal Medicine 07/08/22 documented as of this encounter
--- OUTSIDE RECORDS SUMMARY | 2025-03-25 10:37 | XMS_ITS | Clinical Summary ---
Author Organization [facility] Address [address] [place] [address] Care Team Providers Care Rubber Tubing Backer Name Role Phone Pita Chen MD Primary Care Provider [phone] Social History Tobacco Use Types Packs/Day Years Used Date Smoking Tobacco: Never Assessed Sex and Gender Information Value Date Recorded Sex Assigned at Not on file Gender Identity Not on file Sexual Orientation Not on file Plan of Treatment Health Maintenance Due Date Last Done Comments Hepatitis C Screening 1962 COVID-19 Vaccine (#1) 1962 Depression Screening 1974 Preventative Health Evaluation 1980 Cervical Cancer Screening (Pap Smear) 1983 Colon Cancer Screening (Colonoscopy) 2007 Breast Cancer Screening (Mammogram) 2012 Shingrix-Zoster Vaccine (1 of 2) 2012 DTap / Tdap / Td (2 - Td or Tdap) 02/25/2022 02/26/2012 Influenza Vaccine (#1) 2025 0, 01/12/2018, 02/08/2013, Additional history exists RSV Adult > 60+ Yrs or (1 - 1-dose 75+ series) 2037 Hepatitis B Vaccines Aged Out No long er eligible based on patient's age to complete this topic Pneumococcal Vaccine Aged Out No long er eligible based on patient's age to complete this topic RSV Ped < 20 months Aged Out No longe r eligible based on patient's age to complete this topic Care Teams Rubber Tubing Backer Relationship Specialty Start Date End Date Pita Chen MD PCP - General Internal Medicine 03/31/18
--- OUTSIDE RECORDS SUMMARY | 2025-03-25 10:37 | XMS_ITS | Encounter Summary ---
Author Organization [facility] Address [address] [place] [address] Care Team Providers Care Director Of Market Intelligence Name Role Phone Denita Perez MD Primary Care Provider [phone] Encounter Details Date Type Department Care Team (Late Contact Info) Description 03/24/2025 Results Follow-Up Adult Medicine [address] [phone] Denita Perez MD [address] [place] [address] Social History Tobacco Use Types Packs/Day Years [...] 05/19/2025 11:00 AM EST Office Visit Adult [address] [phone] César Lamb PA [address] [place] [address] documented as of this encounter Visit Diagnoses Not on filedocumented in this encounter Additional Health Concerns Infection Onset Date Last Indicated Resolved Time MRSA 12/01/2024 12/01/2024 documented as of this encounter Care Teams Director Of Market Intelligence Relationship Specialty Start Date End Date Denita Perez MD [address] [place] [phone] PCP - General Internal Medicine 07/08/22 documented as of this encounter
--- OUTSIDE RECORDS SUMMARY | 2025-03-25 10:37 | XMS_ITS | Clinical Summary ---
Author Organization [facility] Address [address] [place] [address] [address] [place] [address] Care Team Providers Care Manager Labor Relations Name Role Phone Unavailable Primary Care Provider Unavailabl e Immunizations Immunization Administration Dates Next Due INFLUENZA INJECTABLE QUADRIV ALANT CCIIV4 MDCK Multi-dose vial 01/31/2023 Influenza Injectable Quadriv alant Preservative Free IIV4 MDCK 03/15/2020,01/12/2018 Influenza injectable quadriv alent preservative free 03/09/2016 Influenza, IIV3, injectable 04/03/2022,1 ,02/15/2021,2018,02/13/2017,02/08/2013,01/30/2012 Influenza, Injectable, MDCK, w/preservative 02/18/2024 Influenza, Recombinant, inje ctable, preservative free 02/17/2014 Influenza, Split (incl. constance fied surface antigen) 02/08/2013,01/30/2012,01/24/2009 TD (adult), 2 Lf tetanus tox oid, preservative free, adsorbed 05/10/2022,09/01/2004 Tdap 02/26/2012 Social History Tobacco Use Types Packs/Day Years Used Date Smoking Tobacco: Never Assessed Comments Unknown Sex and Gender Information Value Date Recorded Sex Assigned at Female 01/31/2023 9:58 AM EDT Legal Sex Female 8:33 PM EDT Gender Identity Female 01/31/2023 9:58 AM EDT Sexual Orientation Don't know 01/31/2023 9: 58 AM EDT Plan of Treatment Health Maintenance Due Date Last Done Comments CT Colonography 1962 Colonoscopy 1962 Colorectal Cancer Screening 1962 Depression Screening 1962 FIT DNA/Cologuard 1962 FIT 1962 FOBT 1962 HIV Screening 1962 SDOH Screening 1962 Sigmoidoscopy 1962 Disability Screening 1962 Alcohol/Substance Use Screening 1974 Tobacco Screening 1974 Hepatitis C Screening 1980 Pap Smear 1983 Cervical Cancer Screening 1992 HPV/Cotest 1992 Mammogram 2002 Pneumococcal Vaccine: 50+ Years (1 of 1 - PCV) 2012 Zoster Vaccines (1 of 2) 2012 COVID-19 Vaccine (4 - season) 2025 04/06/2021, 08/09/2020, 07/19/2020 Influenza Vaccine (#1) 2025 , 01/31/2023, 04/03/2022, Additional history exists DTaP/Tdap/Td Vaccines (3 - Td or Tdap) 05/10/2032 05/10/2022, 02/26/2012, 09/01/2004 RSV Patients and Patients Aged 60 years or older (1 - 1-dose 75+ series) 2037 HIB Vaccines Aged Out No longer eligi [...] patient's age to complete this topic Meningococcal Vaccine Aged Out No nkechi jesús eligible based on patient's age to complete this topic RSV under 20 months Aged Out No longe r eligible based on patient's age to complete this topic Rotavirus Vaccines Aged Out No longer eligible based on patient's age to complete this topic Insurance [employer] FEDERAL
== END 2025-03-25 10:19 | disposition home or self-care (01) ==
LOC: HO.HPHYS 09:55
PROVIDERS: PCP Internal Medicine; Visit Provider Physician Assistant
DX: M54.16 Radiculopathy, lumbar region (principal); M47.816 Spondylosis without myelopathy or radiculopathy, lumbar region
CPT/HCPCS: 99213